=== PATIENT | female | born 1985 | race American Indian/Alaskan Native ===

== ENCOUNTER 2017-02-04 12:01 | Inpatient (IN) | payer MEDICAID ==
[2017-02-04] MEDS ORDERED: Methylergonovine 0.2 MG/1 ML Amp IM PRN (12:23)
[2017-02-04] MEDS ORDERED: Carboprost Tromethamine 250 MCG/1 ML Amp IM PRN (12:23)
[2017-02-04] MEDS ORDERED: Sodium Chloride 0.9% 10 ML Syringe FLUSH PRN ×2 (12:23→14:43)
[2017-02-04] MEDS ORDERED: Ondansetron 4 MG/2 ML SDV IV PRN (12:23)
[2017-02-04] MEDS ORDERED: Misoprostol 400 MCG (4 X 100 MCG TAB) RECTAL PRN (12:23)
[2017-02-04] MEDS ORDERED: Lactated Ringers 500 ML IV ONE (12:23)
[2017-02-04] MEDS ORDERED: Lidocaine 1% 30 ML SDV INJECT PRN (12:23)
[2017-02-04] MEDS: Lactated Ringers 1,000 ML IV SCH ×2 (12:25→13:38)
[2017-02-04] MEDS ORDERED: Ondansetron 4 MG/2 ML SDV ONE (12:33)
--- NOTE | 2017-02-04 13:03 | PCM.SN ---
- Free Text/Narrative Note: Intrathecal. sitting position, sterile prep and drape. 1% lidocaine w bicarb for skinwheal to L2 L3 interspace, introducer, 24 ga pencan x 1. Pos CSF, neg heme, neg parsthesia. 15 mcg pf sufenta, 35 mcg pf fentanyl, 0.4 ml pf NS and 6 mg of 0.75 % pf bupivacaine injected after CSF aspiration. Pt to L lateral position. Proceduretime 1235 to 1305
[2017-02-04] MEDS ORDERED: Zolpidem 5 MG Tab PO PRN (14:43)
[2017-02-04] MEDS ORDERED: Simethicone 80 MG Tab.Chew PO PRN (14:43)
[2017-02-04] MEDS ORDERED: Benzocaine/Menthol 20%-0.5% Spray 56 GM Canister TOP PRN (14:43)
[2017-02-04] MEDS ORDERED: Oxytocin 10 Units/1 ML SDV IM PRN (14:43)
[2017-02-04] MEDS ORDERED: Measles, Mumps & Rubella Vaccine 0.5 ML SDV SUBCUT ONE (14:43)
[2017-02-04] MEDS ORDERED: Oxytocin/Normal Saline 30 UNIT/500 ML BAG IV SCH (14:45)
[2017-02-04] MEDS: Docusate Sodium 100 MG Cap PO PRN (21:25)
[2017-02-04] MEDS: Ibuprofen 800 MG Tab PO PRN (21:25)
[2017-02-05] MEDS: Acetaminophen 325 MG Tab PO PRN ×3 (01:07→13:44)
[2017-02-05] MEDS: Ibuprofen 800 MG Tab PO PRN ×2 (05:04→13:41)
--- NOTE | 2017-02-05 08:44 | HP ---
PATIENT IDENTIFICATION: Prieto Ramirez is a 31-year-old, G5, P4-0-0-3, intrauterine 40 and 2/7 weeks, confirmed with a 30-week ultrasound, who presents contractions. HISTORY OF PRESENT ILLNESS: The patient was in the night before with contractions that were irregular, found to have not significant cervical change and wished to go home. Subsequently, thereafter, she started having contractions that continued and got stronger approximately 2 hours prior to admission around 10:15 a.m. on date of admission to the point that she is breathing through them, coming every 2 minutes, increasing in frequency and intensity and nothing seems to make them better. Time has made them worse. To put this in context, she is GBS negative; has anemia of , better with vitamins and iron; rubella nonimmune status; insufficient care per chart review and had an infant at approximately 28 days of age back in 03/2016. Records were called for and reviewed as below and supplemented by the patient history. OB HISTORY: 1. 03/24/2016, 38 weeks, delivered vaginally, female, 3232 g; this baby at 28 days of age. 2. 03/11/2015, 39 weeks, delivered via spontaneous vaginal delivery, female, 3320 g, with no care. Urine drug screen positive for opiates during that time. 3. 02/17/2014, 39 and 6/7 weeks, male, spontaneous vaginal delivery, weighing 3175 g. 4. 2005, 40 weeks, male, spontaneous vaginal delivery, weighing 2693 g. ANTEPARTUM LABORATORY DATA: ABO blood type O positive, negative antibody. Rubella nonimmune. Surface antibody is nonreactive. Negative hepatitis B surface antigen. Negative HIV. GC, chlamydia, and wet prep within normal limits. One-hour GTT is not documented and GBS was negative in the third trimester. ALLERGIES: Penicillin. MEDICATIONS: 1. vitamins. 2. Iron. PAST MEDICAL/PAST SURGICAL HISTORY: Remarkable for history of fibrocystic breast tissue, opiate misuse, blood type O positive, history of chickenpox as a child. FAMILY HISTORY: Father has a pacer. Breast cancer in maternal aunt. Two maternal aunts have diabetes. Heart attack in paternal uncle. Negative family history of ovarian cancer, uterine cancer, cervical cancer, vulvar cancer, anesthesia problems, bleeding problems, or defects. SOCIAL HISTORY: The patient was a former smoker. Denies drug use currently, but has history of opioid abuse. No alcohol use. Sexually active with male partner. She lives in the [facility]. [place] Ozuna, significant other, and father of baby and of those other children. REVIEW OF SYSTEMS: Otherwise, reviewed quickly and felt to be noncontributory. OBJECTIVE: Vital Signs: Reveal a blood pressure of 147/87, heart rate 79. Appearance: The patient is breathing through contractions, but answers questions appropriately in between. HEENT: Head is atraumatic. EOMs intact. PERRLA. No scleral icterus. No obvious otorhinorrhea. Mucous members moist. Neck: No obvious tenderness. Lungs: Clear to auscultation bilaterally. No increased work of breathing. Heart: S1 and S2. Regular rate and rhythm. Abdomen: Gravid, Neto's indeterminate, nontender. Nondistended. Bowel sounds are positive. No organomegaly, pulsatile masses, or obvious hernias. No rebound, rigidity, or guarding. Genitourinary: Normal external female genitalia. Per nurse, 7 cm dilated. Extremities: Trace pedal edema. Deep tendon reflexes 3-4/4 bilaterally and symmetric in lower extremities. Mood and affect congruent. Judgement and insight intact. Skin without any, clubbing, cyanosis or jaundice. LABORATORY DATA: Pending CBC. ASSESSMENT AND PLAN: 1. Intrauterine 40 and 2/7 weeks, confirmed with 30-week ultrasound. 2. Active labor. 3. Group B Streptococcus negative. 4. Anemia of , better with iron and vitamins per chart review. We will check CBC upon admission. 5. Rubella nonimmune. 6. Insufficient care. 7. History of at 28 days of age. 8. G5, P4-0-0-3. 9. Transient hypertension versus gestational hypertension versus preeclampsia. Currently, we will follow closely as the patient is nearing the second stage of labor and she is not in the severe range. She denies any headaches, visual changes, or upper abdominal pain currently. [facility] /[id number]
[2017-02-05] MEDS ORDERED: Prenatal Multivitamin with Calcium/Folic Acid/Iron Tab PO SCH (09:00)
[2017-02-05] MEDS: Docusate Sodium 100 MG Cap PO PRN (09:47)
--- NOTE | 2017-02-05 09:50 | PN ---
DATE: 02/04/2017 SUBJECTIVE: The patient is now status post intrathecal, feeling comfortable. Denies any complaints. OBJECTIVE: Vital Signs: Last blood pressure 110/58. heart tones 120s range, felt to be reassuring and reactive. Genitourinary: Tocometer reveals contractions every 2 to 3 minutes. Vaginal exam reveals to be 8 cm, and then, subsequent artificial rupture of membranes done yielding copious amounts of clear fluid and then was almost 9 cm, thereafter. ASSESSMENT AND PLAN: Intrauterine , 40+ weeks, active labor now, status post intrathecal and artificial rupture of membranes in a group B Streptococcus negative mother. We will continue to follow closely. Re-evaluate in the near future. In addition, preeclampsia labs have been ordered. We will most likely straight cath her for a urinalysis and other labs with her urine. [facility] /[id number]
[2017-02-05 10:49] VITALS: BP 122/68
--- NOTE | 2017-02-05 10:50 | DEL ---
DATE: 02/04/2017 PREOPERATIVE DIAGNOSES: 1. Intrauterine at 40 and 2/7 weeks confirmed with 30-week ultrasound. 2. Active labor upon admission. 3. Group B Streptococcus negative. 4. History of anemia of , resolved. 5. Rubella nonimmune. 6. Insufficient care. 7. Infant at 28 days of age with previous . 8. Transient hypertension, suspected. 9. G5, P4-0-0-3. POSTOPERATIVE DIAGNOSES: 1. Intrauterine at 40 and 2/7 weeks confirmed with 30-week ultrasound-delivered. 2. Active labor upon admission. 3. Group B Streptococcus negative. 4. History of anemia of , resolved. 5. Rubella nonimmune. 6. Insufficient care. 7. at 28 days of age with previous . 8. Transient hypertension, suspected. 9. G5, P4-0-0-3. 10.Right-sided vaginal laceration approximately 1 cm, minimal bleeding, requiring repair-repaired. 11.WANDER presentation shifted to transverse presentation with delivery of the shoulders-spontaneous. PROCEDURE PERFORMED: 1. NST. 2. Artificial rupture of membranes with spontaneous vaginal delivery and subsequent right-sided vaginal repair. ANESTHESIA/ANALGESIA: The patient did receive an intrathecal in the first stage of labor. FINDINGS: Female, Apgars 9 and 10, weight pending. ESTIMATED BLOOD LOSS: 200 mL. SUMMARY OF EVENTS: The patient is a 31-year-old, G5, P4-0-0-3, intrauterine at 40 and 2/7 weeks, admitted in active labor. Group B Streptococcus negative status. She is rubella nonimmune. Has a history of insufficient care. at approximately 28 days of age with her last delivery. She had some elevated blood pressures, most likely related to her labor. Preeclampsia labs were drawn, felt to be reassuring. She did receive an intrathecal in the first stage of labor, then subsequently underwent artificial rupture of membranes and then continued to progress thereafter until she was found to be complete. I was called to the room, donned sterile gown and gloves. With the patient pushing with contractions x2, vertex was delivered in WANDER presentation. Subsequently with continued pushing, baby turned straight transverse and shoulders were delivered in a transverse presentation followed by rest of the infant without difficulty. Mouth and nares were suctioned. Cord was doubly clamped cut, and was resuscitated on mother's abdomen. Then, approximately 10 mL of cord blood was obtained for labs. Placenta was then delivered with gentle cord traction and fundal massage within 5 minutes. Perineum, vagina and perirectal areas were then examined, noted to have approximately 1 cm laceration/abrasion lower right vaginal orifice region. Pressure was applied over this area, but despite this, bleeding continued. [id number] stitch was applied with 3-0 Vicryl. Hemostasis reassured. Mother and infant are currently stable at the time of dictation. [facility] /[id number]
--- NOTE | 2017-02-05 11:17 | OBOUT ---
DATE: 02/04/2017 DATE AND TIME OF NST: Date: 02/04/2017. Time: 1210 hours to 1230 hours. REASON FOR NST: 1. Intrauterine at 40 and 2/7 weeks, confirmed with 30-week ultrasound. 2. Active labor. 3. GBS negative. 4. History of anemia of . 5. Rubella nonimmune. 6. Insufficient care. 7. History of infant at approximately 28 days. 8. Transient hypertension versus gestational hypertension versus preeclampsia. 9. G5, P4-0-0-3. NST INTERPRETATION: During this time period, heart tone baseline is approximately 120 to 125, and there are at least two 15 x 15 beat per minute accelerations, making this strip reactive. It is also noted to be reassuring. Tocometer reveals potential of 7 contractions during this time period. The patient is breathing through them. PHYSICAL EXAMINATION: Vital Signs: Blood pressure 141/89, heart rate 102, recheck 147/87 with heart rate 79. ASSESSMENT: 1. Nonstress test, reactive and reassuring. 2. Tocometer with contractions. PLAN: Shortly after this NST, vaginal exam reveals to be unchanged at 7 cm, bulging bag of water., vertex suspected. The patient is requesting intrathecal, and we will call for this as soon as possible. Labs have been drawn, have just got back with results, white cell count 9.0, hemoglobin 12.8, and platelets 212. For her hypertension, we will start the preeclampsia workup with a PIH panel, urinalysis, protein-creatinine ratio, and also order a BIO-RAD with her history. [facility] /[id number]
[2017-02-05] MEDS ORDERED: fentaNYL 100 MCG/2 ML SDV ITHECAL ONE (13:12)
--- NOTE | 2017-02-06 08:11 | PCM.DCSUM1 ---
Discharge Summary - Hospital Course Free Text/Narrative:: 31yo NA G5 now P5 who presented in active labor @ 40w2d and delivered a viable 8lb 9.7 oz female by without complications. see delivery note Dr Correa for details. APGARs 9 & 10. course uneventful and she requested early discharge on PPD #1 Was discharged home in good condition. had cramping controlled by ibuprofen. otherwise, no concerns. bottlefeeding. VSS, afebrile. HPI Initial Comments: see admission H&P limited care Brief History: see [facility] episode notes for details. - Discharge Data Discharge Date: 02/05/17 (DISCHARGE SUMMARY) Discharge Disposition: Home, Self-Care 01 Condition: Stable - Discharge Diagnosis/Problem(s) (1) Vaginal delivery SNOMED Code(s): 702628551 ICD Code: O80 - ENCOUNTER FOR FULL-TERM UNCOMPLICATED DELIVERY Status: Acute - Patient Summary/Data Complications: none Hospital Course: uneventful, routine course - Patient Instructions Diet: Usual Diet as Tolerated Diet, Other: furmula, bottlefed Feeding Instructions: formula, bottle fed Activity: No Lifting Over 20 Pounds, No Strenuous Activities Driving: May Drive Today Showering/Bathing: May Shower Wound/Incision Care: Keep Operative Site/Wound Site Clean and Dry Notify Provider of: Fever, Increased Pain, Swelling and Redness, Drainage, Nausea and/or Vomiting Other/Special Instructions: 6 week check - Discharge Plan Home Medications: Home Meds Acetaminophen [Tylenol] 650 mg PO Q6H PRN #0 tablet 03/26/16 [Rx] Docusate Sodium [Colace] 100 mg PO BID PRN #0 cap 03/26/16 [Rx] Ibuprofen [IJD: Ibuprofen] 800 mg PO Q8H PRN #0 tablet 03/26/16 [Rx] Vit with Ca/FA/Iron [ Plus Iron] 1 each PO DAILY tablet [Rx] Ferrous Sulfate [Ferosul] 325 mg PO BID 02/04/17 [History] Patient Handouts: Home Care Instructions for Mom - Discharge Summary/Plan Comment DC Time >30 min.: No Discharge Summary/Plan Comment: recheck 6 weeks and prn hmb - General Info Date of Service: 02/05/17 (DISCHARGE SUMMARY) Admission Dx/Problem (Free Text: Discharge summary: 31yo NA presented at 40w2w in active labor and went on to deliver by viable female weighing 8lb 9.7 oz APGARs 9 & 10 no complications with delivery. see delivery note of Dr. Correa for details. EBL 200cc course uneventful and pt requested early discharge on PPD #1 hmb Functional Status: Reports: Pain Controlled, Tolerating Diet, Ambulating, Urinating - Review of Systems General: Reports: No Symptoms HEENT: Reports: No Symptoms Pulmonary: Reports: No Symptoms Cardiovascular: Reports: No Symptoms Gastrointestinal: Reports: No Symptoms Genitourinary: Reports: Other (cramping noted. controlled with ibuprofen and Tylenol) Musculoskeletal: Reports: No Symptoms Skin: Reports: No Symptoms Neurological: Reports: No Symptoms Psychiatric: Reports: No Symptoms - Patient Data Vitals - Most Recent: Last Vital Signs Temp 97.0 F 02/05/17 08:00 Pulse 68 02/05/17 08:00 Resp 16 02/05/17 08:00 BP 122/68 02/05/17 08:00 Pulse Ox 98 02/05/17 08:00 Weight - Most Recent: 147 lb Med Orders - Current: Current Medications Discontinued Medications Acetaminophen (Tylenol) 650 mg PO Q4H PRN PRN Reason: Pain (Mild 1-3) and fever Last Admin: 02/05/17 13:44 Dose: 650 mg Benzocaine/Menthol (Dermoplast Pain Relief [place]) 0 gm TOP Q4H PRN PRN Reason: Perineal comfort measures Carboprost Tromethamine (Hemabate Ds) 250 mcg IM ASDIRECTED PRN PRN Reason: HEMORRHAGE Docusate Sodium (Colace) 100 mg PO BID PRN PRN Reason: Constipation Last Admin: 02/05/17 09:47 Dose: 100 mg Fentanyl (Sublimaze) 35 mcg ITHECAL .STK-MED ONE Stop: 02/05/17 13:13 Lactated Ringer's (Ringers, Lactated) 500 mls @ 500 mls/hr IV .BOLUS ONE Stop: 02/04/17 13:22 Last Admin: 02/04/17 15:34 Dose: Not Given Lactated Ringer's (Ringers, Lactated) 1,000 mls @ 125 mls/hr IV ASDIRECTED CHARO Last Admin: 02/04/17 13:38 Dose: 125 mls/hr Oxytocin/Sodium Chloride (Pitocin In Ns 30 Unit/500 Ml) 30 unit in 500 mls @ 2 mls/hr IV TITRATE CHARO; 2 MUNITS/MIN PRN Reason: Protocol Last Titration: 02/04/17 17:05 Dose: 0 munits/min, 0 mls/hr Ibuprofen (Motrin) 800 mg PO Q8H PRN PRN Reason: Mild Pain or Fever Last Admin: 02/05/17 13:41 Dose: 800 mg Lidocaine HCl (Xylocaine-Mpf 1%) 10 ml INJECT ASDIRECTED PRN PRN Reason: Perineal Repair Measles/Mumps/Rubella Vaccine Live (M-M-R Ii Vaccine) 0.5 ml SUBCUT .ONCE ONE Stop: 02/04/17 14:44 Last Admin: 02/04/17 15:39 Dose: 0.5 ml Methylergonovine Maleate (Methergine) 0.2 mg IM ASDIRECTED PRN PRN Reason: Hemorrhage Misoprostol (Cytotec) 800 mcg RECTAL ASDIRECTED PRN PRN Reason: Hemorrhage Ondansetron HCl (Zofran) 4 mg IV Q4H PRN PRN Reason: Nausea/Vomiting Last Admin: 02/04/17 12:43 Dose: 4 mg Ondansetron HCl (Zofran) Confirm Administered Dose 4 mg .ROUTE .[employer]-MED ONE Stop: 02/04/17 12:34 Last Admin: 02/04/17 12:43 Dose: Not Given Oxytocin (Pitocin) 10 unit IM ONETIME PRN PRN Reason: Bleeding Prenat Multivit/[place]/Iron/Folic Ac ( Plus Iron) 1 each PO DAILY CHARO Last Admin: 02/05/17 09:47 Dose: 1 each Simethicone (Simethicone) 80 mg PO Q4H PRN PRN Reason: Gas Sodium Chloride (Saline Flush) 10 ml FLUSH ASDIRECTED PRN PRN Reason: Keep Vein Open Sodium Chloride (Saline Flush) 10 ml FLUSH ASDIRECTED PRN PRN Reason: Keep Vein Open Sufentanil Citrate (Sufenta) Confirm Administered Dose 50 mcg .ROUTE .STK-MED ONE Stop: 02/04/17 12:42 Last Admin: 02/04/17 15:31 Dose: Not Given Sufentanil Citrate (Sufenta) 15 mcg ITHECAL .K-MED ONE Stop: 02/05/17 13:13 Zolpidem Tartrate (Ambien) 5 mg PO BEDTIME PRN PRN Reason: Insomnia - Exam General: Reports: Alert, Oriented HEENT: Reports: Pupils Equal, Pupils Reactive, EOMI, Mucous Membr. Moist/[place] Neck: Reports: Supple Lungs: Reports: Clear to Auscultation, Normal Respiratory Effort Cardiovascular: Reports: Regular Rate, Regular Rhythm GI/Abdominal Exam: Normal Bowel Sounds, Soft, Non-Tender, No Organomegaly, No Distention, No Abnormal Bruit, No Mass, Pelvis Stable (Female) Exam: Deferred Rectal (Female) Exam: Deferred Back Exam: Reports: Normal Inspection, Full Range of Motion Extremities: Normal Inspection, Normal Range of Motion, Non-Tender, No Pedal Edema, Normal Capillary Refill Skin: Reports: Warm, Dry, Intact Wound/Incisions: Reports: Healing Well Neurological: Reports: No New Focal Deficit Psy/Mental Status: Reports: Alert, Normal Affect, Normal Mood *Q Meaningful Use (DIS) - VTE *Q VTE Criteria *Q: - Stroke *Q Stroke Criteria *Q: - AMI *Q AMI Criteria *Q:
== END 2017-02-05 16:25 | disposition home or self-care (01) | DRG 775 ==
LOC: DL.OBCHECK 12:01 → DL.OB 12:20 → OBSVTOIN 14:30
PROVIDERS: ADMIT Family Medicine; ATTEND Family Medicine
PROC: 10E0XZZ Delivery of Products of Conception, External Approach (ICD-10-PCS; principal; 2017-02-04)
PROC: 10907ZC Drainage of Amniotic Fluid, Therapeutic from Products of Conception, Via Natural or Artificial Opening (ICD-10-PCS; 2017-02-04)
PROC: 0UQG7ZZ Repair Vagina, Via Natural or Artificial Opening (ICD-10-PCS; 2017-02-04)
PROC: 00HU33Z Insertion of Infusion Device into Spinal Canal, Percutaneous Approach (ICD-10-PCS; 2017-02-04)
PROC: 3E0R3BZ Introduction of Anesthetic Agent into Spinal Canal, Percutaneous Approach (ICD-10-PCS; 2017-02-04)
DX: O13.4 Gestational [pregnancy-induced] hypertension without significant proteinuria, complicating childbirth (principal); O71.4 Obstetric high vaginal laceration alone; Z3A.40 40 weeks gestation of pregnancy; Z37.0 Single live birth; Z87.891 Personal history of nicotine dependence
CPT/HCPCS: 01967; 36415; 59409; 80305; 81001; 82570; 83615; 84156; 84450; 84460; 84520; 84550; 85025; 85027; 90707; A9270-GY; J2405; J2590; J3010; J7120

== ENCOUNTER 2017-09-17 21:39 | Emergency (ER) | payer MEDICAID ==
[2017-09-17] MEDS ORDERED: Acetaminophen/HYDROcodone 325-10 MG Tab PO ONE ×2 (21:40→23:37)
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
[2017-09-17 23:36] LABS: CHLORIDE,CL 105 mmol/L (101-111); SODIUM,NA 142 mmol/L (135-145)
[2017-09-17] MEDS ORDERED: Acetaminophen/HYDROcodone 325-10 MG Tab ONE (23:54)
[2017-09-18 00:07] VITALS: BP 126/87
== END 2017-09-18 00:03 | disposition home or self-care (01) ==
LOC: DL.ED 21:39
DX: S92.352A Displaced fracture of fifth metatarsal bone, left foot, initial encounter for closed fracture (principal); S92.322A Displaced fracture of second metatarsal bone, left foot, initial encounter for closed fracture; S92.332A Displaced fracture of third metatarsal bone, left foot, initial encounter for closed fracture; S92.342A Displaced fracture of fourth metatarsal bone, left foot, initial encounter for closed fracture; D64.9 Anemia, unspecified; Z88.0 Allergy status to penicillin; Z79.899 Other long term (current) drug therapy; W18.41XA Slipping, tripping and stumbling without falling due to stepping on object, initial encounter
CPT/HCPCS: 36415; 73630; 73700; 80053; 80305; 81001; 85025; 99284; A9270; G0480

== ENCOUNTER 2020-07-09 19:33 | Emergency (ER) | payer MEDICAID ==
[2020-07-09 19:47] VITALS: BP 115/83; PULSE 82
[2020-07-09 21:08] LABS: ANION GAP 11.7 mEq/L (7-13); CHLORIDE,CL 105 mmol/L (98-107); SODIUM,NA 143 mmol/L (136-145)
[2020-07-09] MEDS ORDERED: Iopamidol 612 MG/ML 100 ML Bottle IVPUSH ONE (21:14)
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
--- NOTE | 2020-07-09 22:02 | CT ---
PROCEDURE INFORMATION: Exam: CT Abdomen And Pelvis With Contrast Exam date and time: 07/09/2020 9:40 PM Age: 35 years old Clinical indication: Other: Pain; Additional info: Id abdominal pain. TECHNIQUE: Imaging protocol: Computed tomography of the abdomen and pelvis with contrast. Radiation optimization: All CT scans at this facility use at least one of these dose optimization techniques: automated exposure control; mA and/or kV adjustment per patient size (includes targeted exams where dose is matched to clinical indication); or iterative reconstruction. Contrast material: [id number]; Contrast volume: 75 ml; Contrast route: INTRAVENOUS (IV); COMPARISON: No relevant prior studies available. FINDINGS: Lungs: Lung bases are clear. Mediastinal space: A moderate hiatal hernia is present. Liver: Normal. No mass. Gallbladder and bile ducts: Normal. No calcified stones. No ductal dilation. Pancreas: Normal. No ductal dilation. Spleen: Normal. No splenomegaly. Adrenal glands: Normal. No mass. Kidneys and ureters: Scattered areas of right renal cortical scarring. The kidneys are otherwise unremarkable. Stomach and bowel: No bowel obstruction or significant bowel wall thickening. There is diffuse fecal material throughout the colon, as can be seen with constipation. Calcified fecal material is noted throughout the colon. Appendix: A normal appendix is identified. Intraperitoneal space: Unremarkable. No free air. No significant fluid collection. Vasculature: Unremarkable. No abdominal aortic aneurysm. Lymph nodes: Unremarkable. No enlarged lymph nodes. Urinary bladder: The bladder is decompressed. Reproductive: 2.8 cm by 2 cm left adnexal cyst. No follow-up is recommended. The reproductive organs are otherwise unremarkable. Bones/joints: No acute skeletal abnormality or aggressive osseous lesion. Soft tissues: There is a fat-containing supraumbilical hernia. IMPRESSION: 1. Severe constipation. 2. Negative for acute abdominopelvic pathology. 3. Incidental findings as detailed above.
== END 2020-07-09 22:36 | disposition home or self-care (01) ==
LOC: DL.ED 19:33
DX: K42.9 Umbilical hernia without obstruction or gangrene (principal); K59.01 Slow transit constipation; Z88.0 Allergy status to penicillin
CPT/HCPCS: 36415; 74177; 80053; 81001; 82150; 83690; 84703; 85025; 99284; Q9967

== ENCOUNTER 2020-07-27 23:13 | Emergency (ER) | payer MEDICAID ==
[2020-07-27 23:29] VITALS: BP 111/73; PULSE 61
[2020-07-27] MEDS ORDERED: Phenazopyridine 95 MG Tab PO ONE (23:34)
[2020-07-27] MEDS ORDERED: Nitrofurantoin Monohydrate/Macrocrystalline 100 MG Cap PO ONE (23:36)
--- NOTE | 2020-07-27 23:46 | EDM.PDOC ---
ED HPI GENERAL MEDICAL PROBLEM - General Chief Complaint: Genitourinary Problem Stated Complaint: POSSIBLE UTI Time Seen by Provider: 07/27/20 23:41 History Limitations: Reports: No Limitations - History of Present Illness INITIAL COMMENTS - FREE TEXT/NARRATIVE: ED with c/o burning and frequency with urination since this cristal. Chills no fever, no flank pain. Hx UTI's in past. No nausea or vomiting. - Related Data Allergies Allergy/AdvReac Type Severity Reaction Status Date / Time Penicillins Allergy unknown Verified 07/09/20 19:38 Home Meds: Home Meds . [No Known Home Meds] 07/09/20 [History] Past Medical History - Past Health History Medical/Surgical History: Denies Medical/Surgical History HEENT History: Reports: None Cardiovascular History: Reports: None Respiratory History: Reports: None Gastrointestinal History: Reports: GERD, Other (See Below) Other Gastrointestinal History: Unspecified hernia Genitourinary History: Reports: UTI, Recurrent, Other (See Below) Other Genitourinary History: BV PROCESS COACH History: Reports: Other PROCESS COACH History: bv Musculoskeletal History: Reports: Other (See Below) Other Musculoskeletal History: hx lt ft toes fx x4 Neurological History: Reports: None 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 Psychiatric History: Reports: Addiction Other Psychiatric History: HX OF ALCOHOL ABUSE WITH TREATMENT Endocrine/Metabolic History: Reports: None Hematologic History: Reports: Anemia Immunologic History: Reports: None Oncologic (Cancer) History: Reports: None Dermatologic History: Reports: None - Infectious Disease History Infectious Disease History: Reports: None - Past Surgical History Head Surgeries/Procedures: Reports: None GI Surgical History: Reports: None Other Female Surgeries/Procedures: with vaginal delivery Social & Family History - Family History Family Medical History: No Pertinent Family History - Tobacco Use Tobacco Use Status *Q: Never Tobacco User - Caffeine Use Caffeine Use: Reports: Soda Other Caffeine Use: 6-8oz cans per day - Recreational Drug Use Recreational Drug Use: No ED ROS GENERAL - Review of Systems Review Of Systems: Comprehensive ROS is negative, except as noted in HPI. ED EXAM, RENAL/ - Physical Exam Exam: See Below Exam Limited By: No Limitations General Appearance: Alert, No Apparent Distress Ears: Normal External Exam Nose: Normal Inspection Throat/Mouth: Normal Inspection Head: Atraumatic, Normocephalic Neck: Normal Inspection Respiratory/Chest: No Respiratory Distress, Lungs Clear, Normal Breath Sounds Cardiovascular: Regular Rate, Rhythm Back Exam: No: CVA Tenderness (L), CVA Tenderness (R) Extremities: Normal Range of Motion Neurological: Alert, Oriented Skin Exam: Warm, Dry, Intact Course - Vital Signs Last Recorded V/S: Last Vital Signs Temp 97 F 07/27/20 23:17 Pulse 61 07/27/20 23:17 Resp 16 07/27/20 23:17 BP 111/73 07/27/20 23:17 Pulse Ox 100 07/27/20 23:17 - Orders/Labs/Meds Orders: Active Orders 24 hr Category Date Time Status CULTURE URINE [RM] Stat Lab 07/27/20 23:17 Received Labs: Laboratory Tests 07/27/20 Range/Units 23:17 Urine Color Yellow (YELLOW) Urine Appearance Cloudy (CLEAR) Urine pH 6.0 (5.0-9.0) Ur Specific [place] 1.020 (1.005-1.030) Urine Protein Negative (NEGATIVE) Urine Glucose (UA) Negative (NEGATIVE) Urine Ketones Negative (NEGATIVE) Urine Occult Blood Small H (NEGATIVE) Urine Nitrite Negative (NEGATIVE) Urine Bilirubin Negative (NEGATIVE) Urine Urobilinogen 1.0 (0.2-1.0) mg/dL Ur Leukocyte Esterase Moderate H (NEGATIVE) Urine RBC 10-20 H /HPF Urine WBC >100 H (0-5/HPF) /HPF Ur Epithelial Cells Few (NOT SEEN) /HPF Amorphous Sediment Few (NOT SEEN) /HPF Urine Bacteria Few (0-FEW/HPF) /HPF Urine Mucus Few H (NOT SEEN) /LPF Meds: Medications Discontinued Medications Generic Name Dose Route Start Last Admin Trade Name Freq PRN Reason Stop Dose Admin Nitrofurantoin Macrocrystals 100 mg 07/27/20 23:36 Nitrofurantoin Monohydrate/Macrocrystalline 100 Mg Cap PO 07/27/20 23:37 ONETIME ONE Phenazopyridine HCl 190 mg 07/27/20 23:34 Phenazopyridine 95 Mg Tab PO 07/27/20 23:35 ONETIME ONE Departure - Departure Time of Disposition: 23:45 Disposition: Home, Self-Care 01 Condition: Good Clinical Impression: UTI (urinary tract infection) Qualifiers: Urinary tract infection type: acute cystitis Hematuria presence: with hematuria Qualified Code(s): N30.01 - Acute cystitis with hematuria - Discharge Information *PRESCRIPTION DRUG MONITORING PROGRAM REVIEWED*: No *COPY OF PRESCRIPTION DRUG MONITORING REPORT IN PATIENT CONNIE: No Instructions: Urinary Tract Infection, Adult, [id number] Additional Instructions: increase fluids macrobid twice daily for one week pyridium 190mg one every 8 hours as needed for burning with urination and bladder symptoms follow up if symptoms worsen Sepsis Event Note (ED) - Evaluation Sepsis Screening Result: No Definite Risk - Focused Exam Vital Signs: Vital Signs Temp Pulse Resp BP Pulse Ox 07/27/20 23:17 97 F 61 16 111/73 100 - My Orders Last 24 Hours: My Active Orders 07/27/20 23:17 CULTURE URINE [RM] Stat - Assessment/Plan Last 24 Hours: My Active Orders 07/27/20 23:17 CULTURE URINE [RM] Stat
== END 2020-07-27 23:50 | disposition home or self-care (01) ==
LOC: DL.ED 23:13
DX: N30.01 Acute cystitis with hematuria (principal); Z88.0 Allergy status to penicillin
CPT/HCPCS: 81001; 87086; 87088; 87186; 99283; A9270-GY